=== PATIENT | female | born 1995 | race Caucasian/White ===

== ENCOUNTER 2017-11-07 06:40 | Inpatient (IN) | payer BC ==
[2017-11-07] VITALS (7 sets, daily range): BP systolic 129–146; BP diastolic 80–90
[~2017-11-07] VITALS: Ht 152.4 cm; Wt 59.9 kg
[~2017-11-07 06:40] MED LIST: PRENATAL TABLE1 EAC3 PO
[2017-11-07 07:16] LABS: HEMATOCRIT 31.4 % (36.0-46.0); MCH 26.3 PG (29.0-34.0); MCHC 31.8 G/DL (30.0-36.0); MCV 82.6 FL (83-99); NRBC (%) 0.7 /100 WBC (0-0); RBC DIS.WIDTH-CV 14.1 % (11.8-14.6); RBC DIS.WIDTH-SD 42.2 % (39-53); WHITE BLOOD COUNT 11.9 K/uL (4.1-10.2)
[2017-11-07 08:02] LABS: MEAN PLAT.VOLUME 11.4 uM^3 (9.5-12.4); PLAT.SUFFICIENCY ADEQUATE; PLATELET COUNT 304 K/uL (156-360)
[2017-11-08 07:00] LABS: BASOPHIL COUNT 0.1 K/uL (0-0.1); EOSINOPHIL (%) 0.6 % (0-5); EOSINOPHIL COUNT 0.1 K/uL (0-0.3); HEMATOCRIT 26.1 % (36.0-46.0); IMMATURE GRANULOCYTE (%) 0.6 % (0.0-0.7); IMMATURE GRANULOCYTE COUNT 0.1 K/uL; LYMPHOCYTE COUNT 2.7 K/uL (1.0-2.8); MCH 26.2 PG (29.0-34.0); MCHC 31.4 G/DL (30.0-36.0); MCV 83.4 FL (83-99); MEAN PLAT.VOLUME 11.2 uM^3 (9.5-12.4); MONOCYTE (%) 4.9 % (3-12); MONOCYTE COUNT 0.9 K/uL (0-0.8); NEUTROPHIL (%) 78.3 % (45-76); NRBC (%) 0.3 /100 WBC (0-0); PLATELET COUNT 245 K/uL (156-360); RBC DIS.WIDTH-CV 14.3 % (11.8-14.6); RBC DIS.WIDTH-SD 43.4 % (39-53); RED BLOOD COUNT 3.13 M/uL (3.80-5.20); WHITE BLOOD COUNT 17.9 K/uL (4.1-10.2)
[2017-11-08 07:42] VITALS: BP 138/87
[2017-11-08 10:56] VITALS: BP 134/80
[2017-11-08 14:43] VITALS: BP 139/82
[2017-11-09 07:15] VITALS: BP 137/83
[2017-11-09] MEDS ORDERED: FEOSOL300 MG/5 M PO (09:35)
[2017-11-09] MEDS ORDERED: CHILDREN'S100 MG/51 PO (09:39)
[2017-11-09] MEDS ORDERED: MYLICON,MYLANTA80 MG PO (09:39)
[2017-11-09] MEDS ORDERED: OXYCODONE H5 MG/5 ML PO (09:39)
[2017-11-09 14:00] VITALS: BP 125/69
== END 2017-11-09 16:10 | disposition home or self-care (01) | DRG 765 ==
LOC: 2WEST 06:40 → 2SOUTH 11:02 → 2WEST 11-09 16:10
PROVIDERS: Obstetrics & Gynecology
PROC: 10D00Z1 Extraction of Products of Conception, Low, Open Approach (ICD-10-PCS; principal; 2017-11-07)
DX: O69.81X0 Labor and delivery complicated by cord around neck, without compression, not applicable or unspecified (principal); D62 Acute posthemorrhagic anemia; O99.02 Anemia complicating childbirth; Z37.0 Single live birth; Z3A.39 39 weeks gestation of pregnancy
CPT/HCPCS: 85025; 85027; 86850; 86900; 86901; J0690; J2274; J3010; J7120

== ENCOUNTER 2018-07-19 08:03 | Inpatient (IN) | payer BC ==
[2018-07-19] VITALS (18 sets, daily range): BP systolic 125–157; BP diastolic 67–100
[~2018-07-19] VITALS: Ht 152.4 cm; Wt 45.4 kg
[~2018-07-19 08:03] MED LIST changes: +CHILDREN'S100 MG/51 PO; +FEOSOL300 MG/5 M PO; +MYLICON,MYLANTA80 MG PO; +OXYCODONE H5 MG/5 ML PO
[2018-07-19 10:31] LABS: BASOPHIL (%) 0.5 % (0-1); EOSINOPHIL (%) 3.4 % (0-5); EOSINOPHIL COUNT 0.2 K/uL (0-0.3); HEMATOCRIT 32.5 % (36.0-46.0); HEMOGLOBIN 10.8 G/DL (11.9-15.5); IMMATURE GRANULOCYTE (%) 0.3 % (0.0-0.7); LYMPHOCYTE (%) 27.8 % (15-42); LYMPHOCYTE COUNT 1.7 K/uL (1.0-2.8); MCH 28.1 PG (29.0-34.0); MCHC 33.2 G/DL (30.0-36.0); MCV 84.4 FL (83-99); MONOCYTE COUNT 0.4 K/uL (0-0.8); NEUTROPHIL COUNT 3.8 K/uL (1.8-6.4); PLATELET COUNT 246 K/uL (156-360); RBC DIS.WIDTH-CV 13.4 % (11.8-14.6); RBC DIS.WIDTH-SD 41.1 % (39-53); RED BLOOD COUNT 3.85 M/uL (3.80-5.20); WHITE BLOOD COUNT 6.2 K/uL (4.1-10.2)
[2018-07-19 10:38] LABS: ALBUMIN 3.7 g/dL (3.2-4.8); CHLORIDE 105 mEq/L (99-109); POTASSIUM 2.9 mEq/L (3.7-5.4); SODIUM 139 mEq/L (136-147)
[2018-07-19 10:41] LABS: GLUCOSE 115 mg/dL (70-99); TOTAL PROTEIN 6.6 g/dL (6.4-8.3)
[2018-07-19 10:43] LABS: TOTAL BILIRUBIN 0.4 mg/dL (0.0-1.0)
[2018-07-19 10:44] LABS: ALKALINE PHOSPHATASE 96 IU/L (3-129); CREATININE 0.6 mg/dL (0.6-1.3); GFR ESTIMATE (CALCULATED) > 59 mL/min/
[2018-07-19 10:45] LABS: UREA NITROGEN (BUN) 4 mg/dL (9-23)
[2018-07-19 10:46] LABS: AST (GOT) 11 IU/L (2-34)
[2018-07-19 10:47] LABS: ALT (GPT) 5 IU/L (3-49)
[2018-07-19 12:18] LABS: AMPHETAMINE NEGATIVE (500 ng/mL); BARBITURATES NEGATIVE (200 ng/mL); BENZODIAZEPINES NEGATIVE (150 ng/mL); BUPRENORPHINE NEGATIVE (10 ng/mL); COCAINE NEGATIVE (150 ng/mL); METHADONE NEGATIVE (200 ng/mL); METHAMPHETAMINE NEGATIVE (500 ng/mL); OPIATES (MORPHINE) NEGATIVE (100 ng/mL); OXYCODONE NEGATIVE (100 ng/mL); PHENCYCLIDINE NEGATIVE (25 ng/mL); PROPOXYPHENE NEGATIVE (300 ng/mL); THC CANNABINOIDS NEGATIVE (50 ng/mL); TRICYCLIC ANTIDEPRESSANTS NEGATIVE (300 ng/mL)
[2018-07-19 17:59] LABS: UR CREATININE CONCENTRATION 133.1 MG/DL
[2018-07-20 06:34] LABS: BASOPHIL (%) 0.4 % (0-1); EOSINOPHIL (%) 1.3 % (0-5); EOSINOPHIL COUNT 0.1 K/uL (0-0.3); HEMATOCRIT 30.5 % (36.0-46.0); HEMOGLOBIN 10.3 G/DL (11.9-15.5); IMMATURE GRANULOCYTE (%) 0.3 % (0.0-0.7); LYMPHOCYTE (%) 25.5 % (15-42); LYMPHOCYTE COUNT 2.4 K/uL (1.0-2.8); MCH 28.3 PG (29.0-34.0); MCHC 33.8 G/DL (30.0-36.0); MCV 83.8 FL (83-99); MONOCYTE (%) 6.6 % (3-12); MONOCYTE COUNT 0.6 K/uL (0-0.8); NEUTROPHIL (%) 65.9 % (45-76); NEUTROPHIL COUNT 6.2 K/uL (1.8-6.4); PLATELET COUNT 245 K/uL (156-360); RBC DIS.WIDTH-CV 13.5 % (11.8-14.6); RBC DIS.WIDTH-SD 41.3 % (39-53); RED BLOOD COUNT 3.64 M/uL (3.80-5.20); WHITE BLOOD COUNT 9.5 K/uL (4.1-10.2)
[2018-07-20 07:00] VITALS: BP 147/89
[2018-07-20 12:05] LABS: TREPONEMA ANTIBODY NEGATIVE (NEGATIVE)
[2018-07-20 14:45] VITALS: BP 133/83
== END 2018-07-20 20:50 | disposition home or self-care (01) | DRG 770 ==
LOC: LDRP-OP 08:03 → 2WEST 08:04 → LDRP-OP 08:33 → 2WEST 20:03
PROVIDERS: Advanced Practice Midwife; Obstetrics & Gynecology
PROC: 10D17ZZ Extraction of Products of Conception, Retained, Via Natural or Artificial Opening (ICD-10-PCS; principal; 2018-07-19)
PROC: 3E0P7VZ Introduction of Hormone into Female Reproductive, Via Natural or Artificial Opening (ICD-10-PCS; principal; 2018-07-19)
DX: O02.1 Missed abortion (principal); Z3A.20 20 weeks gestation of pregnancy; O60.12X0 Preterm labor second trimester with preterm delivery second trimester, not applicable or unspecified
CPT/HCPCS: 80053; 82570; 84156; 85025; 86780; 86850; 86900; 86901; 88305; J1580; J7050; J7120